=== PATIENT | male | born 1985 | race Caucasian/White ===

== ENCOUNTER 2018-09-15 17:29 | Emergency (ER) | payer OTHER ==
[~2018-09-15] VITALS: Ht 182.8 cm; Wt 99.8 kg
[~2018-09-15 17:29] MED LIST: BENADRYL25 MG PO; CLARITIN-D 10 M1 T21 PO; KEFLEX500 MG PO; MOTRIN800 MG PO; NKHM; PREDNISONE20 MG PO; TESSALON PERLE100 M1 PO; VICODIN 5/500 505 MG PO; ZITHROMAX Z-PA250 MG PO
[2018-09-15 17:32] VITALS: BP 118/56
[2018-09-15 18:23] LABS: BILIRUBIN NEGATIVE (NEGATIVE); BLOOD TRACE-INTACT (NEGATIVE); CLARITY CLEAR (CLEAR); COLOR YELLOW (YELLOW); GLUCOSE NEGATIVE (NEGATIVE); KETONE NEGATIVE (NEGATIVE); LEUKO ESTERASE NEGATIVE (NEGATIVE); NITRITE NEGATIVE (NEGATIVE); SPECIFIC GRAVITY 1.015 (1.005-1.030); UROBILINOGEN 0.2 E.U./dl (0.2-1.0)
[2018-09-15 18:34] LABS: BACTERIA 1+; MUCOUS TRACE
[2018-09-15 18:35] LABS: URINE AMPHETAMINES < 1000 (1000ng/ml); URINE BARBITURATES < 200 (200ng/ml); URINE BENZODIAZEPINES < 200 (200ng/ml); URINE CANNABINOIDS (THC) > 50 (50ng/ml); URINE COCAINE > 300 (300ng/ml); URINE METHADONE < 300 (300ng/ml); URINE OPIATES < 300 (300ng/ml)
[2018-09-15 18:36] LABS: RBC 16-20 rbc/hpf (0-2)
[2018-09-15 18:41] LABS: BASO % 0.2 % (0.0-1.0); EOS # 0.1 10*3/uL (0.0-0.4); EOS % 1.1 % (1.0-4.0); HEMATOCRIT 38.4 % (42.0-52.0); HEMOGLOBIN 12.8 g/dl (14.0-18.0); LYMPH # 1.7 10*3/uL (1.3-4.4); LYMPH % 15.6 % (27.0-41.0); MEAN CELL VOLUME 87.5 fl (80.0-94.0); MEAN CORPUSCULAR HGB 29.2 pg (27.0-31.0); MEAN CORPUSCULAR HGB CONC 33.3 g/dl (33.0-37.0); MEAN PLATELET VOLUME 8.8 fl (9.6-12.3); MONO # 0.5 10*3/uL (0.1-1.0); MONO % 4.3 % (3.0-9.0); NEUT # 8.8 10*3/uL (2.3-7.9); NEUT % 78.4 % (47.0-73.0); PLATELET COUNT AUTOMATED 363 10*3/uL (130-400); RED BLOOD COUNT 4.39 10*6/uL (4.50-5.90); RED CELL DISTRI WIDTH 12.8 % (0-14.5); WHITE BLOOD COUNT 11.2 10*3/uL (4.8-10.8)
[2018-09-15 18:41] LABS: URINE PHENCYCLIDINE < 25 (25ng/ml)
[2018-09-15 18:56] LABS: ALBUMIN 3.5 gm/dl (3.1-4.5); ALKALINE PHOSPHATASE 73 U/L (45-117); BUN 11 mg/dl (7-24); CHLORIDE 108 mmol/L (98-107); CREATININE 1.01 mg/dL (0.70-1.30); LIPASE 58 U/L (73-393); POTASSIUM 3.7 mmol/L (3.5-5.1); SGOT/AST 20 IU/L (3-35); SGPT/ALT 33 U/L (12-78); SODIUM 142 mmol/L (136-145); TOTAL PROTEIN 7.5 gm/dL (6.4-8.2)
== END 2018-09-15 20:47 | disposition left against medical advice (07) ==
LOC: ED 17:29
PROVIDERS: Emergency Medicine
DX: M54.9 Dorsalgia, unspecified (principal); R10.9 Unspecified abdominal pain; F17.200 Nicotine dependence, unspecified, uncomplicated; Z79.2 Long term (current) use of antibiotics; Z79.899 Other long term (current) drug therapy

== ENCOUNTER 2022-11-08 16:34 | Emergency (ER) | payer OTHER ==
[~2022-11-08] VITALS: Ht 177.8 cm; Wt 90.7 kg
[2022-11-08 16:40] VITALS: BP 167/100
[2022-11-08] MEDS ORDERED: NARCAN4 MG NAS (18:01)
== END 2022-11-08 18:46 | disposition left against medical advice (07) ==
LOC: ED 16:34
DX: T40.2X4A Poisoning by other opioids, undetermined, initial encounter (principal); Y92.89 Other specified places as the place of occurrence of the external cause

== ENCOUNTER 2022-11-12 11:25 | Emergency (ER) | payer OTHER ==
[~2022-11-12] VITALS: Ht 177.8 cm; Wt 81.6 kg
[~2022-11-12 11:25] MED LIST changes: +NARCAN4 MG NAS
[2022-11-12 11:32] VITALS: BP 0/0
== END 2022-11-12 11:32 ==
LOC: ED 11:27
DX: I46.9 Cardiac arrest, cause unspecified (principal); F10.90 Alcohol use, unspecified, uncomplicated